=== PATIENT | male | born 1980 | race Hispanic/Latino ===

== ENCOUNTER → 2018-07-31 | Day surgery (SDC) | payer OTHER ==
[2018-07-29 17:05] LABS: BASOPHILS # (AUTO) 0.1 (0.0-0.1); BASOPHILS % 0.9 % (0.0-1.0); EOSINOPHILS % 0.5 % (0.0-6.0); HEMATOCRIT 41.9 % (38.2-49.6); HEMOGLOBIN 14.1 g/dL (14.0-18.0); LYMPHOCYTES # (AUTO) 1.4 (1.0-3.2); LYMPHOCYTES % 25.2 % (18.0-39.1); MEAN CORPUSCULAR HEMOGLOBIN 34.4 pg (28-32); MEAN CORPUSCULAR HGB CONC 33.7 g/dL (31-35); MEAN CORPUSCULAR VOLUME 102.2 fL (81-99); MONOCYTES # (AUTO) 0.3 (0.2-0.8); MONOCYTES % 5.8 % (4.4-11.3); NEUTROPHILS # (AUTO) 3.8 (2.1-6.9); NEUTROPHILS % 67.2 % (38.7-80.0); PLATELET COUNT 335 x10e3/uL (140-360); RED CELL DISTRIBUTION WIDTH 13.4 % (11.7-14.4)
[2018-07-29 17:18] LABS: ANION GAP 12.4 mmol/L (8-16); BLOOD UREA NITROGEN 13 mg/dL (7-26); BUN/CREATININE RATIO 16 (6-25); CALCIUM 8.9 mg/dL (8.4-10.2); CARBON DIOXIDE 25 mmol/L (22-29); CHLORIDE 109 mmol/L (98-107); CREATININE, SERUM 0.81 mg/dL (0.72-1.25); EST GLOMERULAR FILTRATION RATE > 60 ML/MIN (60-); GLUCOSE 94 mg/dL (74-118); POTASSIUM 4.4 mmol/L (3.5-5.1); SODIUM 142 mmol/L (136-145)
[~2018-07-31] MED LIST: ACETAMINOPHEN 1000 MG/100 ML IV ONE; BUPIVACAINE 0.25%/EPI 30ML SDV INJ ONE; DEXAMETHASONE SOD PHOS INJ 4 MG/ML VIAL ONE; FENTANYL CITRATE/PF 100MCG/2 ML INJ ONE; KETOROLAC TROMETHAMINE 30 MG/ML VIAL ONE; LIDOCAINE HCL 2% LOCAL INJ 5 ML SDV VIAL INJ ONE; MEPERIDINE HCL INJ 25 MG/ML VIAL ONE; MIDAZOLAM HCL 2 MG/2 ML VIAL ONE; NORCO 10-325 T1 EACH PO; ONDANSETRON HCL INJ 2MG/ML 2ML 2 MG/ML VIAL ONE; PROPOFOL IV EMULSION 10 MG/ML 20 ML VIAL ONE; SEVOFLURANE INHAL SOLN 250 ML PEN BTL ONE
[2018-07-31 10:40] VITALS: BP 133/78
--- NOTE | 2018-07-31 10:58 | Operative Report ---
DATE OF PROCEDURE: 07/31/2018 SURGEON: Florin Robbins MD PREOPERATIVE DIAGNOSIS: Right inguinal hernia. POSTOPERATIVE DIAGNOSIS: Right inguinal hernia. PROCEDURE PERFORMED: Repair of right inguinal hernia with Ultrapro hernia system oval type. ANESTHESIA: General endotracheal. ESTIMATED BLOOD LOSS: Minimal. SMOKING TOBACCO PACKING MACHINE HAND: MAURISIO Gillespie. INDICATION AND FINDINGS: The patient is a 38-year-old male, who complained of painful bulge of the right groin after lifting a heavy object two weeks ago. 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 He had no GI or symptoms. INTRAOPERATIVE FINDINGS: Direct defect. No indirect hernia sac. No femoral herniation. The Ultrapro hernia system oval type was deployed in the preperitoneal space. DESCRIPTION OF PROCEDURE: With the patient lying on the operative table in the supine position and after administration of general anesthesia, he was prepped and draped for repair of right inguinal hernia. Preemptive anesthesia was given with 0.25% Marcaine with epinephrine as an ilioinguinal nerve block and an incisional nerve block. A transverse groin incision was made deep into skin, subcutaneous tissue, Andreas fascia until the external oblique aponeurosis was identified. This was incised along the course of its fibers, transecting the external inguinal ring. Medial and lateral leaves were developed. The cord was mobilized at the level of the pubic tubercle and retracted away from the operative field by [place] drain. The cremaster area was incised and indirect hernia sac was not found. After we did that we dissected the herniation of properitoneal fat through the direct defect and then reduced into the preperitoneal space. Then, we created a pocket to place the underlay part of the mesh using blunt dissection and then we deployed the Ultrapro hernia system oval type with the underlay part of the mesh lying in the preperitoneal space with the inferior leaf of it in a TachoSil fashion and the upper leaf against the abdominal wall. A slit was then made to accommodate the cord then the mesh was secured to the local tissues using a series of interrupted 2-0 Ethibond sutures. The wound was irrigated. Bleeding points were cauterized then the wound was closed in layers using 2-0 Vicryl for the external oblique aponeurosis, 2-0 catgut for the soft tissues, and the skin was closed using ely. Marcaine 0.25% with epinephrine was given as local block at the end of the case. The patient tolerated the procedure well, taken to the recovery room in stable condition. MD BON Troncoso/NEREYDA /[id number] cc: Kobe Collado DO
== END | disposition home or self-care (01) ==
LOC: OR 06:01
PROVIDERS: ATTEND Surgery
DX: K40.90 Unilateral inguinal hernia, without obstruction or gangrene, not specified as recurrent (principal); M54.9 Dorsalgia, unspecified; F41.9 Anxiety disorder, unspecified; F17.200 Nicotine dependence, unspecified, uncomplicated; Z01.812 Encounter for preprocedural laboratory examination
CPT/HCPCS: 36415; 49505; 80048; 85025; C1781; J0131; J1100; J1885; J2001; J2175; J2250; J2405; J2704